=== PATIENT | female | born 1945 | race Caucasian/White ===

== ENCOUNTER 2016-11-05 07:42 | Emergency (ER) | payer MEDICARE, MEDICAID ==
[2016-11-05 08:24] LABS: Clarity Hazy (Clear); Specific Gravity, Urine 1.016 (1.002-1.036)
[2016-11-05 08:25] LABS: Bilirubin Small (Negative); Glucose, Urine (Dipstick) Negative (Negative); Icto Negative (Negative); Leukocyte Negative (Negative); Nitrite Negative (Negative); Urobilinogen 0.2 mg/dL (0.2-1.0)
[2016-11-05 08:26] LABS: Blood, Urine Trace (Negative); Protein, Urine (Dipstick) > or equal to 300 mg/dL (Neg-Trace)
[2016-11-05 08:27] LABS: Bacteria/HPF 2+ HPF (None Seen); RBC/HPF 0-3 HPF (0-3); Squamous Epithelial 0-3 HPF (0-3); WBC/HPF 0-3 HPF (0-3)
--- NOTE | 2016-11-05 08:50 | CT ---
NONCONTRAST HEAD CT HISTORY: Altered mental status. COMPARISON: 05/04/2013 TECHNIQUE: A noncontrast head CT is performed from the skull base to the skull vertex. FINDINGS: Limited evaluation due to motion degradation. Age appropriate atrophy. Cortical hoff white matter differentiation preserved. The ventricles and sulci are patent and symmetric. White matter hypodensities due to chronic small vessel ischemic changes are noted. The calvarium is intact. Adequate aeration of the sinuses and m astoid air cells. Cavernous carotid atherosclerosis is noted. IMPRESSION: 1. Age appropriate atrophy. 2. Chronic small vessel ischemic change of the white matter. 3. No acute intracranial process. POS: [facility]
[2016-11-05 08:52] LABS: ALT (SGPT) 10 U/L (8-55); AST (SGOT) 11 U/L (5-34); Albumin 3.1 g/dL (3.4-4.8); Alkaline Phosphatase 68 U/L (40-150); Anion Gap 15 mmol/L (10-20); BUN (Urea Nitrogen) 58 mg/dL (9.8-20.1); Bilirubin, Total 0.5 mg/dL (0.2-1.2); CK (CPK) 11 U/L (29-168); Calc. Creatinine Clearance 0 mL/min (70-130); Calcium 9.4 mg/dL (7.8-10.44); Carbon Dioxide 27 mmol/L (23-31); Chloride 102 mmol/L (98-107); Estimated GFR-MDRD 15; Globulin 3.6 g/dL (2.4-3.5); Glucose 148 mg/dL (83-110); Lipase 7 U/L (8-78); Protein, Total 6.7 g/dL (6.0-8.3); Sodium 140 mmol/L (136-145)
[2016-11-05 08:53] LABS: CKMB 2.7 ng/mL (0-6.6); Troponin I 0.044 ng/mL (< 0.028)
[2016-11-05 09:11] LABS: Hemoglobin 10.8 g/dL (12.0-16.0); Manual Diff?? YES; Mean Corpuscular HGB CONC 30.9 g/dL (32.0-36.0); Mean Corpuscular Hemoglobin 32.3 pg (27.0-31.0); Mean Platelet Volume 6.3 fL (7.4-10.4); Platelet Count 104 thou/uL (130-400); RBC Distribution Width 17.9 % (11.5-14.5); Red Blood Cell (RBC) Count 3.35 mill/uL (4.20-5.40)
--- NOTE | 2016-11-05 09:24 | RAD ---
PORTABLE CHEST HISTORY: Altered mental status. COMPARISON: 05/26/2016 FINDINGS: Heart size is enlarged. There are postop sternotomy changes. There are infiltrative appearing morel ges in the right mid and lower lung zones. No signs of overt edema. IMPRESSION: 1. Increased parenchymal density in the right mid and lower lung richards, consistent with infiltrate . 2. Cardiomegaly. POS: OFF
[2016-11-05 09:29] LABS: Anisocytosis SLIGHT = 6-15 cells (100X) (0-5/hpf); Band 3 % (5-11); Lymphocytes 5 % (21-51); MDiff Complete? YES; Monocytes 2 % (0-10); Neutrophil 85 % (42-75)
[2016-11-05 09:30] LABS: PLT Morphology Comment Appears Adequate
[2016-11-05] MEDS ORDERED: cefTRIAXone\\ROCEPHIN 2 GM VIAL ONE (09:30)
[2016-11-05] MEDS ORDERED: Azithromycin 500 MG VIAL ONE (10:00)
[2016-11-05] MEDS ORDERED: Sodium Chloride 0.9% 500 ML BAG ONE (13:07)
[2016-11-05] MEDS ORDERED: Sodium Chloride 0.9% 100 ML BAG ONE (13:07)
== END 2016-11-05 10:12 | disposition short-term general hospital (02) ==
LOC: MADERS 07:42
DX: A41.9 Sepsis, unspecified organism (principal); R65.20 Severe sepsis without septic shock; E11.649 Type 2 diabetes mellitus with hypoglycemia without coma; T68.XXXA Hypothermia, initial encounter; J18.9 Pneumonia, unspecified organism; I25.10 Atherosclerotic heart disease of native coronary artery without angina pectoris; K21.9 Gastro-esophageal reflux disease without esophagitis; I13.2 Hypertensive heart and chronic kidney disease with heart failure and with stage 5 chronic kidney disease, or end stage renal disease; I50.9 Heart failure, unspecified; N18.6 End stage renal disease; F32.9 Major depressive disorder, single episode, unspecified; Z89.512 Acquired absence of left leg below knee; Z89.511 Acquired absence of right leg below knee; Z79.899 Other long term (current) drug therapy
CPT/HCPCS: 36415; 36416; 51702; 70450; 71010; 80053; 81003; 81015; 82550; 82553; 83605; 83690; 84443; 84484; 85025; 87040; 87086; 93005; 96361; 96365; 96375; J0456; J0696; J7050